=== PATIENT | female | born 1985 | race American Indian/Alaskan Native ===

== ENCOUNTER 2019-08-15 15:02 | Outpatient (CLI) | payer MEDICAID ==
[2019-08-15] MEDS ORDERED: LACTATED RINGERS 500 ML IV ONE (15:45)
[2019-08-15 16:11] LABS: Hematocrit 31.1 % (30.3-42.9); Hemoglobin 10.1 gm/dl (10.1-14.3); Mean Corpuscular HGB Conc 33 % (30-34); Mean Corpuscular Volume 75 fl (79-97); Platelet Count 319 K/mm3 (140-440); Red Blood Count 4.17 M/mm3 (3.65-5.03)
[2019-08-15 16:28] LABS: Bacteria,Urine 2+ /HPF (Negative); Bilirubin,Urine NEG (Negative); Blood,Urine NEG (Negative); Color,Urine Yellow (Yellow); Mucus,Urine 3+ /HPF; Protein,Urine <15 mg/dL mg/dL (Negative); Urobilinogen,Urine < 2.0 mg/dL (<2.0)
[2019-08-15 16:33] LABS: Alanine Aminotransferase 8 units/L (7-56); Uric Acid 3.3 mg/dL (3.5-7.6)
[2019-08-15 17:19] VITALS: BP 123/73
== END 2019-08-15 17:29 | disposition home or self-care (01) ==
LOC: TRG 15:02
PROVIDERS: ATTEND Obstetrics & Gynecology
DX: O16.2 Unspecified maternal hypertension, second trimester (principal); Z3A.33 33 weeks gestation of pregnancy
CPT/HCPCS: 36415; 81001; 82565; 83615; 84450; 84460; 84550; 85027